=== PATIENT | male | born 1970 | race Hispanic/Latino ===

== ENCOUNTER 2018-08-15 23:39 | Emergency (ER) | payer MEDICAID ==
[2018-08-16] MEDS ORDERED: ONDANSETRON HCL 4 MG/2 ML VIAL ONE (00:18)
[2018-08-16] MEDS ORDERED: KETOROLAC TROMETHAMINE 30MG/ML ONE (00:19)
[2018-08-16 00:50] LABS: BASOPHILS % (AUTO) 0.4 % (0.0-5.0); CARBON DIOXIDE 29 mmol/L (21-32); CHLORIDE 105 mmol/L (101-111); EOSINOPHILS % (AUTO) 0.2 % (0.0-8.0); GLOMERULAR FILTR. RATE CALC 85 mL/min (>60); GLUCOSE,RANDOM 132 mg/dL (70-105); LYMPHOCYTES % (AUTO) 13.6 % (21.0-51.0); MEAN CORPUSCULAR HEMOGLOBIN 28.7 pg (27.0-33.0); MEAN CORPUSCULAR HGB CONC 32.4 g/dL (32.0-36.0); MEAN CORPUSCULAR VOLUME 88.6 fL (79-99); MONOCYTES % (AUTO) 6.1 % (3.0-13.0); NEUTROPHILS % (AUTO) 79.7 % (40.0-77.0); NUCLEATED RED BLOOD CELLS 0.1 % (0.0-0.19); PLATELET COUNT (AUTO) 304 K/uL (130-400); RED BLOOD CELL COUNT(AUTO) 4.97 MIL/uL (4.50-6.20); RED CELL DISTRIBUTION WIDTH 15.8 % (11.0-15.5); SODIUM SERUM 141 mmol/L (136-145); UREA NITROGEN, BLOOD 24 mg/dL (7-18); WHITE BLOOD COUNT (AUTO) 15.1 K/uL (4.8-10.8)
[2018-08-16 00:54] LABS: ALANINE AMINOTRANSFERASE 25 U/L (12-78); ALBUMIN 3.7 g/dL (3.5-5.0); ALCOHOL, BLOOD < 3 mg/dL (0-10); ASPARTATE AMINOTRANSFERASE 16 U/L (10-37); BILIRUBIN,DIRECT < 0.1 mg/dL (0.0-0.3); BILIRUBIN,TOTAL 0.3 mg/dL (0.2-1.0); LIPASE 83 U/L (114-286); TOTAL PROTEIN, SERUM 7.1 g/dL (6.0-8.3)
== END 2018-08-16 01:46 | disposition home or self-care (01) ==
LOC: EDH 23:39
DX: R10.84 Generalized abdominal pain (principal); R11.0 Nausea
CPT/HCPCS: 36415; 74021; 80048; 80076; 83690; 84484; 85025; 93005; 96374; 96375; 99284; G0480; J1885; J2405

== ENCOUNTER → 2023-07-13 | Outpatient (CLI) | payer MEDICAID ==
[~2023-07-13] MED LIST: IOHEXOL 350 MG/ML 100ML INFUS..BTL IV ONE
== END | disposition home or self-care (01) ==
LOC: RAH 10:22
PROVIDERS: ATTEND Student in an Organized Health Care Education/Training Program
DX: R07.9 Chest pain, unspecified (principal); M47.815 Spondylosis without myelopathy or radiculopathy, thoracolumbar region
CPT/HCPCS: 75574; Q9967